=== PATIENT | male | born 1960 | race Asian ===

== ENCOUNTER 2018-03-08 18:36 | Emergency (ER) | payer OTHER ==
[~2018-03-08] VITALS: Ht 175.3 cm; Wt 83.9 kg
[2018-03-08 19:41] LABS: PLATELET COUNT 144 K/uL (142-355)
[2018-03-08 19:51] LABS: POTASSIUM 3.6 mmol/L (3.6-5.2)
[2018-03-08 20:25] VITALS: BP 158/88; TEMP 97.8
[2018-03-08] MEDS ORDERED: ASPIR-8181 MG PO (21:50)
[2018-03-08] MEDS ORDERED: DOCU100C10 PO (21:57)
[2018-03-08] MEDS ORDERED: BENZ1TAB43 PO (21:57)
[2018-03-08] MEDS ORDERED: DIVA500T2 PO (21:59)
[2018-03-08] MEDS ORDERED: DIVA250T PO (22:00)
[2018-03-08] MEDS ORDERED: HALO5TAB10 PO (22:02)
[2018-03-08] MEDS ORDERED: MELATONIN3 M1 PO (22:03)
[2018-03-08] MEDS ORDERED: MIRALAX3350 N1 PO (22:05)
[2018-03-08] MEDS ORDERED: SEROQUEL100 MG PO (22:06)
[2018-03-08] MEDS ORDERED: SEROQUEL300 MG PO (22:07)
[2018-03-08] MEDS ORDERED: TYLENOL325 MG PO (22:09)
== END 2018-03-08 20:25 | disposition other institution (70) ==
LOC: ED 18:36
DX: F31.89 Other bipolar disorder (principal); F20.89 Other schizophrenia; Z04.6 Encounter for general psychiatric examination, requested by authority
CPT/HCPCS: 36415; 80053; 81000; 85027; 93005; 99285